=== PATIENT | female | born 1930 | race Caucasian/White ===

== ENCOUNTER 2021-03-10 19:23 | Emergency (ER) | payer MEDICARE, BC ==
[~2021-03-10] VITALS: Ht 160 cm; Wt 45.2 kg
[~2021-03-10 19:23] MED LIST: ACIPHEX20 MG PO; ADVAIR 250/501 EA INH; ALENDRONATE SOD70 M1 PO; AMLODIPINE BESYL5 MG PO; AMLODIPINE5 MG PO; ASPIRIN ADULT L81 M1 PO; ASPIRIN81 MG PO; CYMBALTA30 MG PO; DOCUSATE SOD100 MG PO; DUONEB 3 MG/3 ML3 M1 INH; KEFLEX500 MG PO; LASIX40 MG PO; LEVAQUIN750 MG PO; LOSARTAN POTASS25 M1 PO; METOPROLOL TART50 M1 PO; MILLIPRED5 MG PO; MIRTAZAPINE30 M1 PO; OXYGEN NAS; POTASSIUM CHLO10 MEQ PO; PREDNISONE20 MG PO; SPIRIVA18 MCG PO; VICODIN 5/500 505 MG PO; VITAMIN D32000 UNIT PO; XANAX0.5 MG PO
[2021-03-10 19:31] VITALS: BP 157/82
== END 2021-03-10 20:45 | disposition home or self-care (01) ==
LOC: ED 19:23
DX: M25.551 Pain in right hip (principal); Z79.899 Other long term (current) drug therapy; Z79.82 Long term (current) use of aspirin; Z90.711 Acquired absence of uterus with remaining cervical stump; W18.09XA Striking against other object with subsequent fall, initial encounter; Y93.89 Activity, other specified; Y92.89 Other specified places as the place of occurrence of the external cause; Y99.8 Other external cause status

== ENCOUNTER → 2021-03-19 | Outpatient (CLI) | payer MEDICARE, BC | END | disposition home or self-care (01) | LOC: ORTHO 13:06 | PROVIDERS: ATTEND Orthopaedic Surgery | DX: S72.112G Displaced fracture of greater trochanter of left femur, subsequent encounter for closed fracture with delayed healing (principal); X58.XXXD Exposure to other specified factors, subsequent encounter ==

== ENCOUNTER → 2021-03-27 | Outpatient (CLI) | payer MEDICARE, BC | END | disposition home or self-care (01) | LOC: CARD 09:00 | PROVIDERS: ATTEND Internal Medicine | DX: I49.3 Ventricular premature depolarization (principal); R94.31 Abnormal electrocardiogram [ECG] [EKG] ==

== ENCOUNTER 2021-04-03 10:46 | Emergency (ER) | payer MEDICARE, BC ==
[~2021-04-03] VITALS: Wt 44.0 kg
[2021-04-03 11:45] LABS: BASO % 0.2 % (0.0-1.0); EOS # 0.1 10*3/uL (0.0-0.4); EOS % 2.1 % (1.0-4.0); HEMATOCRIT 28.4 % (37.0-47.0); LYMPH # 0.5 10*3/uL (1.3-4.4); LYMPH % 7.9 % (27.0-41.0); MEAN CELL VOLUME 103.6 fl (81.0-99.0); MEAN CORPUSCULAR HGB 29.2 pg (27.0-31.0); MEAN CORPUSCULAR HGB CONC 28.2 g/dl (33.0-37.0); MEAN PLATELET VOLUME 9.5 fl (9.6-12.3); MONO # 0.5 10*3/uL (0.1-1.0); MONO % 7.6 % (3.0-9.0); NEUT # 4.9 10*3/uL (2.3-7.9); NEUT % 81.4 % (47.0-73.0); PLATELET COUNT AUTOMATED 236 10*3/uL (130-400); RED BLOOD COUNT 2.74 10*6/uL (4.10-5.10); RED CELL DISTRI WIDTH 16.9 % (0-14.5); WHITE BLOOD COUNT 6.1 10*3/uL (4.8-10.8)
[2021-04-03 11:58] LABS: ALBUMIN 2.5 gm/dl (3.1-4.5); CREATININE 1.55 mg/dL (0.55-1.02); POTASSIUM 5.1 mmol/L (3.5-5.1); TOTAL PROTEIN 5.5 gm/dL (6.4-8.2)
[2021-04-03 16:02] LABS: BILIRUBIN Negative (Negative); BLOOD Negative (Negative); CLARITY Clear (Clear); COLOR Yellow (Yellow); GLUCOSE Negative (Negative); KETONE Negative (Negative); LEUKO ESTERASE Negative (Negative); NITRITE Negative (Negative)
[2021-04-03 16:21] LABS: BACTERIA 1+; RBC 0-2 rbc/hpf (0-2)
[2021-04-04 07:28] VITALS: BP 157/79
== END 2021-04-04 13:40 | disposition short-term general hospital (02) ==
LOC: ED 10:46
PROVIDERS: Emergency Medicine
DX: S72.142A Displaced intertrochanteric fracture of left femur, initial encounter for closed fracture (principal); Z79.899 Other long term (current) drug therapy; Z79.82 Long term (current) use of aspirin; X58.XXXA Exposure to other specified factors, initial encounter; Y93.89 Activity, other specified; Y92.89 Other specified places as the place of occurrence of the external cause; Y99.8 Other external cause status

== ENCOUNTER 2021-05-02 20:33 | Emergency (ER) | payer MEDICARE, BC ==
[2021-05-02 20:37] VITALS: BP 190/100
[2021-05-02 23:37] LABS: BASO % 0.1 % (0.0-1.0); EOS % 0.1 % (1.0-4.0); HEMATOCRIT 30.2 % (37.0-47.0); LYMPH # 0.5 10*3/uL (1.3-4.4); LYMPH % 4.7 % (27.0-41.0); MEAN CELL VOLUME 97.1 fl (81.0-99.0); MEAN CORPUSCULAR HGB 28.6 pg (27.0-31.0); MEAN CORPUSCULAR HGB CONC 29.5 g/dl (33.0-37.0); MEAN PLATELET VOLUME 8.6 fl (9.6-12.3); MONO # 0.8 10*3/uL (0.1-1.0); MONO % 6.9 % (3.0-9.0); NEUT # 9.7 10*3/uL (2.3-7.9); NEUT % 87.3 % (47.0-73.0); PLATELET COUNT AUTOMATED 383 10*3/uL (130-400); RED BLOOD COUNT 3.11 10*6/uL (4.10-5.10); RED CELL DISTRI WIDTH 15.9 % (0-14.5); WHITE BLOOD COUNT 11.1 10*3/uL (4.8-10.8)
== END 2021-05-03 01:44 | disposition home or self-care (01) ==
LOC: ED 20:33
PROVIDERS: Emergency Medicine
DX: R04.0 Epistaxis (principal); I10 Essential (primary) hypertension; F41.9 Anxiety disorder, unspecified; J44.9 Chronic obstructive pulmonary disease, unspecified; Z79.899 Other long term (current) drug therapy; Z79.82 Long term (current) use of aspirin; Z98.890 Other specified postprocedural states